=== PATIENT | female | born 2000 | race Caucasian/White ===

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

== ENCOUNTER 2020-02-24 16:05 | Outpatient (REF) | payer MEDICAID, SELFPAY ==
[2020-02-25 15:58] LABS: Chlamydia Result Negative (Negative); GC Result Negative (Negative)
== END 2020-02-24 16:25 ==
LOC: LBN 16:05
PROVIDERS: PCP Physician Assistant Medical; Visit Provider Nurse Practitioner Family
DX: Z11.3 Encounter for screening for infections with a predominantly sexual mode of transmission (principal)
CPT/HCPCS: 87491; 87591

== ENCOUNTER 2022-07-03 10:43 | Outpatient (REF) | payer OTHER, SELFPAY ==
--- NOTE | 2022-07-03 10:00 | PAPFT_PTH ---
PATIENT: Kathleen Downs LOC: [facility] U#:[id number] AGE/SX: 21/F ROOM: RE07/03/[address]: Dee Mccartney CNM : 2000 BED: DIS: 07/03/2022 SPEC #: [id number] RECD: 07/03/22 13:15 STATUS: TERRIE REQ #: [id number] KIRIT: 07/03/22 10:[address]: Dee Mccartney DEPT: [facility] Cytology RECD BY: Evelia Trevino ENTERED: 07/03/22 13:15 SP TYPE: PAPFT OTHR DR: Deonna Coronado Tissues: 1 - CX/ENDOCX FOR PAP SMEARS Procedures: PAP THIN PREP/[facility] Screening Comments: [id number] (CHLAMYDIA/GC)
[2022-07-04 15:01] LABS: Chlamydia Result Negative (Negative); GC Result Negative (Negative)
== END 2022-07-03 10:44 | disposition home or self-care (01) ==
LOC: LBN 10:43
PROVIDERS: PCP Physician Assistant Medical; Visit Provider Advanced Practice Midwife
DX: Z12.4 Encounter for screening for malignant neoplasm of cervix (principal); Z11.3 Encounter for screening for infections with a predominantly sexual mode of transmission
CPT/HCPCS: 87491; 87591; 88142